=== PATIENT | female | born 1960 | race Caucasian/White ===

== ENCOUNTER 2018-02-15 13:31 | Inpatient (IN) | payer BC ==
[~2018-02-15] VITALS: Ht 175.3 cm; Wt 93.0 kg
[~2018-02-15 13:31] MED LIST: ASPIRIN 81M81 MG/TA2 PO; PROTONIX20 MG PO
[2018-02-23] MEDS ORDERED: ELIQUIS 5MG PO (09:30)
[2018-02-23] MEDS ORDERED: CARTIA XT180 MG PO (09:30)
[2018-02-23] MEDS ORDERED: CARTIA XT120 MG PO (09:31)
[2018-02-23] MEDS ORDERED: LASIX 40MG TABL40 MG PO (09:31)
[2018-02-23] MEDS ORDERED: TAMBOCOR50 MG PO (09:32)
[2018-02-23] MEDS ORDERED: IRON 27 MG PO (09:35)
[2018-02-23] MEDS ORDERED: CALCIUM 600/VIT1 CAP PO (09:35)
[2018-02-23] MEDS ORDERED: MAGNESIUM OXID500 MG PO (09:36)
[2018-02-23 09:43] VITALS: BP 120/75; PULSE 99; TEMP 98.2
[2018-02-23 10:33] LABS: BASO % 0.5 % (0.0-2.0); EOS # 0.1 (0.0-0.7); EOS % 0.8 % (0-4.0); GRAN # 4.7 (1.4-6.5); GRAN % 62.5 % (42.2-75.2); HEMATOCRIT 44.6 % (37.0-47.0); HEMOGLOBIN 14.3 g/dl (12.5-16.0); LYMPH # 2.1 (1.2-3.4); LYMPH % 27.5 % (20.0-51.0); MEAN CELL VOLUME 92 fl (80.0-100.0); MEAN CORPUSCULAR HEMOGLOBIN 29 pg (27.0-31.0); MEAN CORPUSCULAR HGB CONC 32 g/dl (33.0-37.0); MEAN PLATELET VOLUME 9.9 fl (7.4-10.4); MONO # 0.6 (0.1-0.6); MONO % 8.4 % (1.7-9.3); PLATELET COUNT 345 K/mm3 (130-400); RED BLOOD COUNT 4.86 M/mm3 (4.10-5.30); REDCELL DISTRIBUTION WIDTH-CV 12.8 % (11.5-14.5)
[2018-02-23 10:35] LABS: INR 1.2 (0.8-3.0)
[2018-02-23 10:45] LABS: ALBUMIN 4.8 gm/dL (3.5-5.0); BILIRUBIN,TOTAL 0.4 mg/dL (0.0-1.0); CALCIUM 10.1 mg/dL (8.4-10.2); CREATININE, serum 0.59 mg/dL (0.52-1.25); POTASSIUM 3.7 mmol/L (3.4-5.0); TOTAL PROTEIN 8.3 gm/dL (6.4-8.2)
[2018-02-23 12:55] VITALS: BP 108/57; PULSE 76; TEMP 98.3
[2018-02-23 16:30] VITALS: BP 111/53; PULSE 80; TEMP 97.9
[2018-02-23 22:15] VITALS: BP 102/53; PULSE 71; TEMP 97.4
[2018-02-24] VITALS (7 sets, daily range): BP systolic 90–137; BP diastolic 51–68; PULSE 71–86; TEMP 97–98.2
[2018-02-24 08:00] LABS: BASO % 0.3 % (0.0-2.0); EOS # 0.1 (0.0-0.7); GRAN # 4.3 (1.4-6.5); GRAN % 62.5 % (42.2-75.2); HEMATOCRIT 42.9 % (37.0-47.0); HEMOGLOBIN 13.5 g/dl (12.5-16.0); LYMPH # 2.1 (1.2-3.4); LYMPH % 30.2 % (20.0-51.0); MEAN CELL VOLUME 93 fl (80.0-100.0); MEAN CORPUSCULAR HEMOGLOBIN 29 pg (27.0-31.0); MEAN CORPUSCULAR HGB CONC 32 g/dl (33.0-37.0); MEAN PLATELET VOLUME 9.8 fl (7.4-10.4); MONO # 0.4 (0.1-0.6); MONO % 5.7 % (1.7-9.3); PLATELET COUNT 326 K/mm3 (130-400); RED BLOOD COUNT 4.62 M/mm3 (4.10-5.30); REDCELL DISTRIBUTION WIDTH-CV 12.7 % (11.5-14.5)
[2018-02-24 08:24] LABS: CALCIUM 9.7 mg/dL (8.4-10.2); CREATININE, serum 0.61 mg/dL (0.52-1.25); POTASSIUM 3.6 mmol/L (3.4-5.0)
[2018-02-25 03:07] VITALS: BP 92/52; PULSE 72; TEMP 98
[2018-02-25 06:26] LABS: BASO % 0.4 % (0.0-2.0); EOS # 0.1 (0.0-0.7); EOS % 1.3 % (0-4.0); GRAN # 5.9 (1.4-6.5); GRAN % 65.1 % (42.2-75.2); HEMATOCRIT 40.4 % (37.0-47.0); HEMOGLOBIN 13.3 g/dl (12.5-16.0); LYMPH # 2.4 (1.2-3.4); LYMPH % 26.1 % (20.0-51.0); MEAN CELL VOLUME 91 fl (80.0-100.0); MEAN CORPUSCULAR HEMOGLOBIN 30 pg (27.0-31.0); MEAN CORPUSCULAR HGB CONC 33 g/dl (33.0-37.0); MEAN PLATELET VOLUME 9.9 fl (7.4-10.4); MONO # 0.6 (0.1-0.6); MONO % 6.9 % (1.7-9.3); PLATELET COUNT 324 K/mm3 (130-400); RED BLOOD COUNT 4.46 M/mm3 (4.10-5.30); REDCELL DISTRIBUTION WIDTH-CV 12.4 % (11.5-14.5)
[2018-02-25 06:38] LABS: CALCIUM 9.5 mg/dL (8.4-10.2); CREATININE, serum 0.64 mg/dL (0.52-1.25); MAGNESIUM 1.9 mg/dL (1.6-2.3); POTASSIUM 3.9 mmol/L (3.4-5.0)
[2018-02-25 07:22] VITALS: BP 108/61; PULSE 74; TEMP 98.1
[2018-02-25] MEDS ORDERED: BETAPACE 80MG80 MG PO (10:03)
== END 2018-02-25 12:08 | disposition home or self-care (01) | DRG 310 ==
LOC: MEDICAL 02-23 08:06 → INPTSU 02-23 08:06 → MEDICAL 02-23 13:29
PROVIDERS: Internal Medicine Cardiovascular Disease
DX: I48.0 Paroxysmal atrial fibrillation (principal); Z79.01 Long term (current) use of anticoagulants